=== PATIENT | female | born 1985 | race Hispanic/Latino ===

== ENCOUNTER 2020-12-31 15:11 | Observation (INO) | payer BC ==
[~2020-12-31] VITALS: Ht 162.6 cm; Wt 61.2 kg
[2020-12-31 15:13] VITALS: BP 112/68
[2020-12-31] MEDS ORDERED: TERBUTALINE SULFATE VIAL 1MG/ML SQ PRN (16:30)
[2020-12-31] MEDS ORDERED: LACTATED RINGERS 1000ML IV SCH (16:30)
[2020-12-31 16:53] LABS: APPEARANCE,URINE Clear (CLEAR); BILIRUBIN,URINE Negative (NEGATIVE); COLOR,URINE Yellow (YELLOW); GLUCOSE, URINE (UA) Negative (NEGATIVE); KETONES,URINE Negative (NEGATIVE); LEUKOCYTE ESTERASE ,URINE Small (NEGATIVE); NITRATE,URINE Negative (NEGATIVE); OCCULT BLOOD,URINE Negative (NEGATIVE); PROTEIN,URINE Negative (NEGATIVE)
[2020-12-31 17:08] LABS: BACTERIA,URINE Few /HPF (None Seen); MUCUS,URINE Rare LPF (None Seen); SQUAMOUS EPITHELIAL CELL,UR Rare /HPF (0-2)
[2021-01-18] MEDS ORDERED: PREN-196 PO (21:17)
[2021-01-19] MEDS ORDERED: LEVE750T4 PO (02:10)
== END 2020-12-31 18:36 | disposition home or self-care (01) ==
LOC: EDH 15:11 → LDH 15:12
PROVIDERS: ADMIT Obstetrics & Gynecology; ATTEND Obstetrics & Gynecology
DX: O26.853 Spotting complicating pregnancy, third trimester (principal); O26.893 Other specified pregnancy related conditions, third trimester; R10.30 Lower abdominal pain, unspecified; Z3A.35 35 weeks gestation of pregnancy
CPT/HCPCS: 59025; 81001; 96360; 96361; 96372; G0378 ×3; G0379; J3105; J7120

== ENCOUNTER 2021-01-18 10:02 | Inpatient (IN) | payer BC ==
[~2021-01-18] VITALS: Ht 162.6 cm; Wt 62.1 kg
[2021-01-18] MEDS ORDERED: LACTATED RINGERS 1000ML 1,000 ML IV SCH (11:00)
[2021-01-18 11:46] LABS: HEMATOCRIT 28.5 % (36-48); MEAN CORPUSCULAR HEMOGLOBIN 26.3 pg (27.0-33.0); MEAN CORPUSCULAR HGB CONC 32.3 g/dL (32.0-36.0); MEAN CORPUSCULAR VOLUME 81.4 fL (79-99); RED BLOOD CELL COUNT(AUTO) 3.5 MIL/uL (4.00-5.50); RED CELL DISTRIBUTION WIDTH 13.6 % (11.0-15.5); WHITE BLOOD COUNT (AUTO) 7.3 K/uL (4.8-10.8)
[2021-01-18] MEDS ORDERED: CEFAZOLIN SODIUM 1 GM VIAL IVP PRN (12:00)
[2021-01-18] MEDS ORDERED: CALDOLOR 800MG+NS 250ML 250 ML IV PRN (12:00)
[2021-01-18] MEDS ORDERED: MORPHINE PF 100MG/10ML AMP IV ONE (16:53)
[2021-01-18] MEDS ORDERED: FENTANYL CITRATE PF 50 MCG/1 ML 2ML VIAL ONE (16:53)
[2021-01-18] MEDS ORDERED: CEFAZOLIN SODIUM 1 GM VIAL IVP ONE (17:03)
[2021-01-18] MEDS ORDERED: OXYTOCIN 10 USP UNITS/ML ONE ×2 (17:06→17:27)
[2021-01-18] MEDS ORDERED: ONDANSETRON 4MG INJ ONE (17:12)
[2021-01-18] MEDS ORDERED: EPHEDRINE SULFATE 50 MG/ML AMPULE ONE (17:51)
[2021-01-18] MEDS ORDERED: PHENYLEPHRINE HCL 10 MG/ML 1ML VIAL IV ONE (17:51)
[2021-01-18] MEDS ORDERED: OXYTOCIN-LR 20 UNITS/1000 ML 1,000 ML IV ONE (18:11)
[2021-01-18] MEDS ORDERED: PROMETHAZINE HCL 25 MG/ML 1ML AMPULE IM PRN (18:30)
[2021-01-18] MEDS ORDERED: 0.9%NACL 10ML VIAL IVP PRN (18:30)
[2021-01-18] MEDS ORDERED: DEXTROSE 5 %-0.45 % NACL 1,000 ML IV PRN (18:30)
[2021-01-18] MEDS ORDERED: OXYTOCIN-LR 20 UNITS/1000 ML 1,000 ML IV PRN (18:30)
[2021-01-18] MEDS ORDERED: MEPERIDINE-PF 75 MG/ML SYG IM PRN (18:30)
[2021-01-18 19:40] VITALS: BP 114/58
[2021-01-18 21:00] VITALS: BP 96/57
[2021-01-18] MEDS ORDERED: PREN-196 PO ×2 (21:17)
[2021-01-18 23:20] VITALS: BP 96/71
[2021-01-19] MEDS ORDERED: DiphenhydrAMINE HCL 50 MG/ML VIAL IV ONE (00:40)
[2021-01-19] MEDS ORDERED: DiphenhydrAMINE HCL 50 MG/ML VIAL ONE (01:00)
[2021-01-19] MEDS ORDERED: LEVE750T4 PO ×2 (02:10)
[2021-01-19] MEDS ORDERED: CALDOLOR 800MG+NS 250ML 250 ML IV SCH (04:00)
[2021-01-19 04:11] VITALS: BP 87/50
[2021-01-19] MEDS ORDERED: DIPH,PERTUSS(ACELL),TET VAC/PF 0.5 ML VIAL IM ONE (06:30)
[2021-01-19 06:40] LABS: HEMATOCRIT 29.6 % (36-48); MEAN CORPUSCULAR HEMOGLOBIN 26.4 pg (27.0-33.0); MEAN CORPUSCULAR HGB CONC 31.8 g/dL (32.0-36.0); MEAN CORPUSCULAR VOLUME 83.1 fL (79-99); RED BLOOD CELL COUNT(AUTO) 3.56 MIL/uL (4.00-5.50); RED CELL DISTRIBUTION WIDTH 13.7 % (11.0-15.5); WHITE BLOOD COUNT (AUTO) 9.8 K/uL (4.8-10.8)
[2021-01-19 07:25] VITALS: BP 90/53
[2021-01-19 08:15] LABS: HEPATITIS Bs ANTIGEN SCREEN P Negative (Negative)
[2021-01-19] MEDS ORDERED: HYDROCODONE/ACETAMINOPHEN 5/325 MG TAB PO PRN (08:30)
[2021-01-19] MEDS ORDERED: BISACODYL 10 MG SUPP.RECT RC PRN (08:30)
[2021-01-19] MEDS ORDERED: ACETAMINOPHEN 500 MG TABLET PO PRN (08:30)
[2021-01-19] MEDS ORDERED: ACETAMINOPHEN WITH CODEINE 1 TAB TAB PO PRN (08:30)
[2021-01-19] MEDS: SIMETHICONE 80 MG TAB.CHEW PO PRN ×2 (09:19→21:13)
[2021-01-19] MEDS: DOCUSATE SODIUM 100 MG CAP PO SCH ×2 (09:19→21:13)
[2021-01-19 11:08] VITALS: BP 85/53
[2021-01-19] MEDS: IBUPROFEN 800 MG TAB PO SCH ×2 (12:13→20:11)
[2021-01-19 16:27] VITALS: BP 98/57
[2021-01-19] MEDS ORDERED: IBUPROFEN 800 MG TAB PO SCH (18:30)
[2021-01-19 20:00] VITALS: BP 91/46
[2021-01-19 23:51] VITALS: BP 94/54
[2021-01-20] MEDS: IBUPROFEN 800 MG TAB PO SCH (04:25)
[2021-01-20 04:36] VITALS: BP 104/62
[2021-01-20 07:12] VITALS: BP 106/68
[2021-01-20] MEDS: DOCUSATE SODIUM 100 MG CAP PO SCH (08:37)
[2021-01-20] MEDS: SIMETHICONE 80 MG TAB.CHEW PO PRN (08:37)
[2021-01-20 11:15] VITALS: BP 99/61
== END 2021-01-20 11:50 | disposition home or self-care (01) | DRG 784 ==
LOC: EDH 10:02 → OBSVTOIN 10:03 → LDH 10:03 → EDH 10:11 → WSH 19:40
PROVIDERS: ADMIT Obstetrics & Gynecology; ATTEND Obstetrics & Gynecology
PROC: 0UB70ZZ Excision of Bilateral Fallopian Tubes, Open Approach (ICD-10-PCS; 2021-01-18)
PROC: 3E0234Z Introduction of Serum, Toxoid and Vaccine into Muscle, Percutaneous Approach (ICD-10-PCS; 2021-01-18)
PROC: 10D00Z1 Extraction of Products of Conception, Low, Open Approach (ICD-10-PCS; principal; 2021-01-18 16:45)
DX: O34.211 Maternal care for low transverse scar from previous cesarean delivery (principal); O99.354 Diseases of the nervous system complicating childbirth; Z37.0 Single live birth; G35 Multiple sclerosis; O63.0 Prolonged first stage (of labor); G40.909 Epilepsy, unspecified, not intractable, without status epilepticus; O69.81X0 Labor and delivery complicated by cord around neck, without compression, not applicable or unspecified; O99.824 Streptococcus B carrier state complicating childbirth; Z3A.37 37 weeks gestation of pregnancy; Z23 Encounter for immunization; Z30.2 Encounter for sterilization
CPT/HCPCS: 36415; 59510; 85027; 86592; 86850; 86900; 86901; 87340; 90715; A4344; G0378; J0690; J1200; J1741; J2274; J2370; J2405; J2590; J3010; J3490; J7120